=== PATIENT | male | born 1940 | race Caucasian/White ===

== ENCOUNTER → 2016-08-24 | Outpatient (REF) | payer MEDICARE, BC ==
[2016-08-24 11:58] LABS: MEAN CORPUSCULAR HEMOGLOBIN 32.6 pg (27.0-33.0); MEAN CORPUSCULAR VOLUME 95.9 fl (80.0-96.0); RED CELL DISTRIBUTION WIDTH 13.1 % (11.5-14.5); WHITE BLOOD COUNT 7.4 K/mm3 (4.0-10.0)
[2016-08-24 12:26] LABS: ALBUMIN 3.4 GM/DL (3.2-5.2); ALKALINE PHOSPHATASE 67 U/L (45-117); ALT/SGPT 28 U/L (12-78); ANION GAP 7 MEQ/L (8-16); AST/SGOT 26 U/L (15-37); BILIRUBIN,TOTAL 0.5 MG/DL (0.2-1.0); BLOOD UREA NITROGEN 20 MG/DL (7-18); CALCIUM LEVEL 8.6 MG/DL (8.8-10.2); CARBON DIOXIDE LEVEL 30 MEQ/L (21-32); CHLORIDE LEVEL 104 MEQ/L (98-107); CHOLESTEROL LEVEL 225 MG/DL (<200); FERRITIN 68 NG/ML (26-388); FREE T4 0.97 NG/DL (0.76-1.46); GLOMERULAR FILTRATION RATE > 60.0 (>42); GLUCOSE, FASTING 101 MG/DL (83-110); POTASSIUM SERUM 4.1 MEQ/L (3.5-5.1); SODIUM LEVEL 141 MEQ/L (136-145); TOTAL PROTEIN 6.8 GM/DL (6.4-8.2); TRIGLYCERIDES LEVEL 156 MG/DL (<150)
== END ==
LOC: M SFHCCLAY 07:01
PROVIDERS: ATTEND Family Medicine
DX: D64.9 Anemia, unspecified (principal); E78.00 Pure hypercholesterolemia, unspecified; E03.9 Hypothyroidism, unspecified

== ENCOUNTER → 2016-08-25 | Outpatient (REF) | payer MEDICARE, BC ==
[2016-08-25 12:14] LABS: MEAN CORPUSCULAR HEMOGLOBIN 32.2 pg (27.0-33.0); MEAN CORPUSCULAR HGB CONC 33.5 g/dl (32.0-36.5); MEAN CORPUSCULAR VOLUME 95.9 fl (80.0-96.0); WHITE BLOOD COUNT 7.1 K/mm3 (4.0-10.0)
[2016-08-25 12:18] LABS: ALBUMIN 3.5 GM/DL (3.2-5.2); ALBUMIN/GLOBULIN RATIO 1.06 (1.00-1.93); ALKALINE PHOSPHATASE 72 U/L (45-117); ALT/SGPT 26 U/L (12-78); ANION GAP 6 MEQ/L (8-16); AST/SGOT 22 U/L (15-37); BILIRUBIN,TOTAL 0.4 MG/DL (0.2-1.0); BLOOD UREA NITROGEN 23 MG/DL (7-18); CALCIUM LEVEL 9.2 MG/DL (8.8-10.2); CARBON DIOXIDE LEVEL 30 MEQ/L (21-32); CHLORIDE LEVEL 107 MEQ/L (98-107); CREATININE FOR GFR 1.24 MG/DL (0.70-1.30); GLOMERULAR FILTRATION RATE > 60.0 (>42); GLUCOSE, FASTING 93 MG/DL (83-110); POTASSIUM SERUM 4.4 MEQ/L (3.5-5.1); SODIUM LEVEL 143 MEQ/L (136-145); TOTAL PROTEIN 6.8 GM/DL (6.4-8.2)
[2016-08-25 12:19] LABS: LITHIUM LEVEL 0.86 MEQ/L (0.60-1.20)
== END ==
LOC: M LABDRAWC 11:27
PROVIDERS: ATTEND Nurse Practitioner Psychiatric/Mental Health
DX: Z51.81 Encounter for therapeutic drug level monitoring (principal); Z79.899 Other long term (current) drug therapy

== ENCOUNTER → 2017-03-16 | Outpatient (REF) | payer MEDICARE, BC ==
[2017-03-16 11:49] LABS: MEAN CORPUSCULAR HGB CONC 33.1 g/dl (32.0-36.5); MEAN CORPUSCULAR VOLUME 93.8 fl (80.0-96.0); PLATELET COUNT, AUTOMATED 275 10^3/uL (150-450); RED CELL DISTRIBUTION WIDTH 12.5 % (11.5-14.5); WHITE BLOOD COUNT 6.8 10^3/uL (4.0-10.0)
[2017-03-16 12:23] LABS: ALBUMIN 3.5 GM/DL (3.2-5.2); ALBUMIN/GLOBULIN RATIO 1.06 (1.00-1.93); BILIRUBIN,TOTAL 0.7 MG/DL (0.2-1.0); CALCIUM LEVEL 9.1 MG/DL (8.8-10.2); CREATININE FOR GFR 1.3 MG/DL (0.70-1.30); FREE T4 0.94 NG/DL (0.76-1.46); GLOMERULAR FILTRATION RATE 57.4 (>42); POTASSIUM SERUM 3.7 MEQ/L (3.5-5.1); TOTAL PROTEIN 6.8 GM/DL (6.4-8.2)
== END ==
LOC: M SFHCCLAY 07:23
PROVIDERS: ATTEND Family Medicine
DX: D64.9 Anemia, unspecified (principal); E03.9 Hypothyroidism, unspecified

== ENCOUNTER → 2017-10-25 | Outpatient (REF) | payer MEDICARE, BC ==
[2017-10-25 11:54] LABS: HEMATOCRIT 37.3 % (42.0-52.0); HEMOGLOBIN 12.4 g/dl (13.5-17.5); MEAN CORPUSCULAR HEMOGLOBIN 31.4 pg (27.0-33.0); MEAN CORPUSCULAR HGB CONC 33.2 g/dl (32.0-36.5); MEAN CORPUSCULAR VOLUME 94.4 fl (80.0-96.0); PLATELET COUNT, AUTOMATED 255 10^3/uL (150-450); RED BLOOD COUNT 3.95 10^6/uL (4.30-6.10); RED CELL DISTRIBUTION WIDTH 12.9 % (11.5-14.5)
[2017-10-25 12:45] LABS: ALBUMIN 3.2 GM/DL (3.2-5.2); ALBUMIN/GLOBULIN RATIO 1.03 (1.00-1.93); ALKALINE PHOSPHATASE 70 U/L (45-117); ALT/SGPT 24 U/L (12-78); ANION GAP 6 MEQ/L (8-16); AST/SGOT 23 U/L (7-37); BILIRUBIN,TOTAL 0.5 MG/DL (0.2-1.0); BLOOD UREA NITROGEN 21 MG/DL (7-18); CALCIUM LEVEL 8.9 MG/DL (8.8-10.2); CARBON DIOXIDE LEVEL 28 MEQ/L (21-32); CHLORIDE LEVEL 108 MEQ/L (98-107); CHOLESTEROL LEVEL 217 MG/DL (<200); CHOLESTEROL RISK RATIO 4.717 (<5); FERRITIN 112 NG/ML (26-388); FREE T4 0.82 NG/DL (0.76-1.46); GLOMERULAR FILTRATION RATE 57.4 (>42); GLUCOSE, FASTING 90 MG/DL (70-100); HDL CHOLESTEROL 46 MG/DL (>40); LDL CHOLESTEROL 122.2 MG/DL (<100); NON-HDL-C 171 MG/DL; POTASSIUM SERUM 4.3 MEQ/L (3.5-5.1); SODIUM LEVEL 142 MEQ/L (136-145); TOTAL PROTEIN 6.3 GM/DL (6.4-8.2); TRIGLYCERIDES LEVEL 244 MG/DL (<150)
== END ==
LOC: M SFHCCLAY 07:07
DX: D64.9 Anemia, unspecified (principal); E78.2 Mixed hyperlipidemia; E03.9 Hypothyroidism, unspecified
CPT/HCPCS: 84443

== ENCOUNTER → 2018-04-26 | Outpatient (REF) | payer MEDICARE, BC ==
[2018-04-26 11:32] LABS: HEMATOCRIT 39.9 % (42.0-52.0); HEMOGLOBIN 13.3 g/dl (13.5-17.5); MEAN CORPUSCULAR HEMOGLOBIN 32.3 pg (27.0-33.0); MEAN CORPUSCULAR HGB CONC 33.3 g/dl (32.0-36.5); MEAN CORPUSCULAR VOLUME 96.8 fl (80.0-96.0); PLATELET COUNT, AUTOMATED 247 10^3/uL (150-450); RED BLOOD COUNT 4.12 10^6/uL (4.30-6.10); WHITE BLOOD COUNT 7.1 10^3/uL (4.0-10.0)
[2018-04-26 11:43] LABS: ALBUMIN 3.5 GM/DL (3.2-5.2); BILIRUBIN,TOTAL 0.4 MG/DL (0.2-1.0); CALCIUM LEVEL 9.2 MG/DL (8.8-10.2); CREATININE FOR GFR 1.47 MG/DL (0.70-1.30); GLOMERULAR FILTRATION RATE 49.7 (>42); LITHIUM LEVEL 0.94 MEQ/L (0.60-1.20); POTASSIUM SERUM 4.1 MEQ/L (3.5-5.1); THYROID STIMULATING HORMONE 5.55 uIU/ML (0.358-3.740); THYROXINE (T4) 8.8 UG/DL (4.5-12.0); TOTAL PROTEIN 6.6 GM/DL (6.4-8.2); TOTAL T3 106.5 NG/DL (60.0-181.0)
[2018-04-26 11:44] LABS: TOTAL 25(OH) VITAMIN D 45.8 NG/ML (30.0-100.0)
== END ==
LOC: M LABDRAWC 11:03
PROVIDERS: ATTEND Nurse Practitioner Psychiatric/Mental Health
DX: E61.1 Iron deficiency (principal); E55.9 Vitamin D deficiency, unspecified; Z79.899 Other long term (current) drug therapy

== ENCOUNTER → 2018-09-09 | Outpatient (REF) | payer MEDICARE, BC ==
[2018-09-09 12:16] LABS: BASO % 0.6 % (0.0-1.0); EOS # 0.2 10^3/uL (0.0-0.50); EOS % 3.3 % (0.0-3.0); HEMATOCRIT 39.8 % (42.0-52.0); HEMOGLOBIN 13.2 g/dl (13.5-17.5); LYMPH # 1.3 10^3/uL (1.5-4.5); LYMPH % 19.3 % (24.0-44.0); MEAN CORPUSCULAR HEMOGLOBIN 32.7 pg (27.0-33.0); MEAN CORPUSCULAR HGB CONC 33.2 g/dl (32.0-36.5); MEAN CORPUSCULAR VOLUME 98.5 fl (80.0-96.0); MONO # 0.5 10^3/uL (0.0-0.8); MONO % 7.4 % (0.0-5.0); NEUTROPHILS # 4.8 10^3/uL (1.8-7.7); NEUTROPHILS % 69.1 % (36.0-66.0); PLATELET COUNT, AUTOMATED 268 10^3/uL (150-450); RED BLOOD COUNT 4.04 10^6/uL (4.30-6.10); WHITE BLOOD COUNT 6.9 10^3/uL (4.0-10.0)
[2018-09-09 12:30] LABS: ALBUMIN 3.6 GM/DL (3.2-5.2); BILIRUBIN,TOTAL 0.6 MG/DL (0.2-1.0); CALCIUM LEVEL 9.2 MG/DL (8.8-10.2); CREATININE FOR GFR 1.28 MG/DL (0.70-1.30); FREE T4 0.94 NG/DL (0.76-1.46); GLOMERULAR FILTRATION RATE 58.3 (>42); LITHIUM LEVEL 0.37 MEQ/L (0.60-1.20); POTASSIUM SERUM 3.9 MEQ/L (3.5-5.1); THYROID STIMULATING HORMONE 6.04 uIU/ML (0.358-3.740); TOTAL PROTEIN 6.7 GM/DL (6.4-8.2)
[2018-09-09 13:24] LABS: TOTAL 25(OH) VITAMIN D 51.9 NG/ML (30.0-100.0); TOTAL T3 114.4 NG/DL (60.0-181.0)
== END ==
LOC: M LABDRAWC 11:33
PROVIDERS: ATTEND Acupuncturist
DX: Z79.899 Other long term (current) drug therapy (principal); E55.9 Vitamin D deficiency, unspecified

== ENCOUNTER → 2018-11-22 | Outpatient (REF) | payer MEDICARE, BC ==
[2018-11-22 12:27] LABS: BASO % 0.5 % (0.0-1.0); EOS # 0.3 10^3/uL (0.0-0.50); EOS % 4.2 % (0.0-3.0); HEMATOCRIT 39.6 % (42.0-52.0); HEMOGLOBIN 13.1 g/dl (13.5-17.5); LYMPH # 1.4 10^3/uL (1.5-4.5); LYMPH % 19.1 % (24.0-44.0); MEAN CORPUSCULAR HEMOGLOBIN 31.3 pg (27.0-33.0); MEAN CORPUSCULAR HGB CONC 33.1 g/dl (32.0-36.5); MEAN CORPUSCULAR VOLUME 94.5 fl (80.0-96.0); MONO # 0.6 10^3/uL (0.0-0.8); NEUTROPHILS # 5.1 10^3/uL (1.8-7.7); NEUTROPHILS % 67.9 % (36.0-66.0); PLATELET COUNT, AUTOMATED 277 10^3/uL (150-450); RED BLOOD COUNT 4.19 10^6/uL (4.30-6.10); WHITE BLOOD COUNT 7.5 10^3/uL (4.0-10.0)
[2018-11-22 12:49] LABS: ALBUMIN 3.5 GM/DL (3.2-5.2); BILIRUBIN,TOTAL 0.5 MG/DL (0.2-1.0); CALCIUM LEVEL 9.4 MG/DL (8.8-10.2); CHOLESTEROL RISK RATIO 3.683 (<5); CREATININE FOR GFR 1.32 MG/DL (0.70-1.30); GLOMERULAR FILTRATION RATE 56.1 (>42); POTASSIUM SERUM 3.9 MEQ/L (3.5-5.1); THYROID STIMULATING HORMONE 4.77 uIU/ML (0.358-3.740); TOTAL PROTEIN 6.8 GM/DL (6.4-8.2)
== END ==
LOC: M SFHCCLAY 06:51
PROVIDERS: ATTEND Family Medicine
DX: D64.9 Anemia, unspecified (principal); E78.2 Mixed hyperlipidemia; E03.9 Hypothyroidism, unspecified

== ENCOUNTER → 2018-12-16 | Outpatient (CLI) | payer MEDICARE, BC ==
--- NOTE | 2018-12-16 09:10 | REP ---
Right thumb series: Four views. History: Pain in the right thumb. Findings: Four views of the right thumb demonstrate osteoarthritic changes most pronounced at the first carpometacarpal articulation. There is joint space narrowing, sclerosis and osteophyte formation. There is minimal spurring at the first MCP and mild spurring is seen at the IP joint of the thumb as well. No erosive change is seen. No fracture or other acute bony abnormality. Impression: Osteoarthritis. No acute bony abnormality. Electronically Signed by Steven Matos MD 12/16/2018 09:19 A
== END ==
LOC: M CLY 07:48
PROVIDERS: ATTEND Family Medicine
DX: M18.9 Osteoarthritis of first carpometacarpal joint, unspecified (principal); M79.644 Pain in right finger(s)
CPT/HCPCS: 73140; G0463

== ENCOUNTER → 2019-01-23 | Outpatient (CLI) | payer MEDICARE, BC ==
[2019-01-23 15:32] LABS: BASO % 0.5 % (0.0-1.0); EOS # 0.3 10^3/uL (0.0-0.5); EOS % 3.7 % (0.0-3.0); HEMATOCRIT 38.9 % (42.0-52.0); LYMPH # 1.6 10^3/uL (1.5-5.0); LYMPH % 18.4 % (24.0-44.0); MEAN CORPUSCULAR HEMOGLOBIN 32.6 pg (27.0-33.0); MEAN CORPUSCULAR HGB CONC 33.4 g/dl (32.0-36.5); MEAN CORPUSCULAR VOLUME 97.5 fl (80.0-96.0); MONO # 0.6 10^3/uL (0.0-0.8); MONO % 6.6 % (0.0-5.0); NEUTROPHILS % 70.4 % (36.0-66.0); PLATELET COUNT, AUTOMATED 249 10^3/uL (150-450); RED BLOOD COUNT 3.99 10^6/uL (4.30-6.10); WHITE BLOOD COUNT 8.5 10^3/uL (4.0-10.0)
[2019-01-23 15:53] LABS: HEMOGLOBIN A1c 5.1 %
[2019-01-23 16:05] LABS: ALBUMIN 3.5 GM/DL (3.2-5.2); BILIRUBIN,TOTAL 0.8 MG/DL (0.2-1.0); CALCIUM LEVEL 9.4 MG/DL (8.8-10.2); CREATININE FOR GFR 1.43 MG/DL (0.70-1.30); GLOMERULAR FILTRATION RATE 51.2 (>42); LITHIUM LEVEL 0.62 MEQ/L (0.60-1.20); PERCENT SATURATION 32.9 % (19.7-50.0); POTASSIUM SERUM 4.2 MEQ/L (3.5-5.1); THYROID STIMULATING HORMONE 2.43 uIU/ML (0.358-3.740); THYROXINE (T4) 9.3 UG/DL (4.5-12.0); TOTAL PROTEIN 6.8 GM/DL (6.4-8.2)
[2019-01-23 16:08] LABS: TOTAL 25(OH) VITAMIN D 51.6 NG/ML (30.0-100.0)
== END ==
LOC: M LAB 14:38
PROVIDERS: ATTEND Nurse Practitioner Psychiatric/Mental Health
DX: Z51.81 Encounter for therapeutic drug level monitoring (principal); Z79.899 Other long term (current) drug therapy; E55.9 Vitamin D deficiency, unspecified; D50.9 Iron deficiency anemia, unspecified; R79.89 Other specified abnormal findings of blood chemistry

== ENCOUNTER → 2019-06-15 | Outpatient (REF) | payer MEDICARE, BC ==
[2019-06-15 19:30] LABS: BASO # 0.1 10^3/uL (0.0-0.2); BASO % 0.7 % (0.0-1.0); EOS # 0.2 10^3/uL (0.0-0.5); EOS % 3.3 % (0.0-3.0); HEMATOCRIT 39.5 % (42.0-52.0); HEMOGLOBIN 12.7 g/dl (13.5-17.5); LYMPH % 14.7 % (24.0-44.0); MEAN CORPUSCULAR HEMOGLOBIN 31.8 pg (27.0-33.0); MEAN CORPUSCULAR HGB CONC 32.2 g/dl (32.0-36.5); MEAN CORPUSCULAR VOLUME 98.8 fl (80.0-96.0); MONO # 0.5 10^3/uL (0.0-0.8); MONO % 7.4 % (0.0-5.0); NEUTROPHILS # 5.1 10^3/uL (1.5-8.5); NEUTROPHILS % 73.6 % (36.0-66.0); PLATELET COUNT, AUTOMATED 255 10^3/uL (150-450)
[2019-06-15 19:48] LABS: ALBUMIN 3.3 GM/DL (3.2-5.2); BILIRUBIN,TOTAL 0.8 MG/DL (0.2-1.0); CALCIUM LEVEL 9.2 MG/DL (8.8-10.2); CREATININE FOR GFR 1.4 MG/DL (0.70-1.30); GLOMERULAR FILTRATION RATE 52.5 (>42); LITHIUM LEVEL 0.93 MEQ/L (0.60-1.20); PERCENT SATURATION 28.4 % (19.7-50.0); POTASSIUM SERUM 4.2 MEQ/L (3.5-5.1); THYROID STIMULATING HORMONE 0.028 uIU/ML (0.358-3.740); THYROXINE (T4) 12.3 UG/DL (4.5-12.0); TOTAL PROTEIN 6.4 GM/DL (6.4-8.2)
[2019-06-15 19:52] LABS: TOTAL 25(OH) VITAMIN D 49.6 NG/ML (30.0-100.0)
[2019-06-15 19:54] LABS: TOTAL T3 116.4 NG/DL (60.0-181.0)
== END ==
LOC: M LABDRAWC 18:43 → M LAB REF 18:43
PROVIDERS: ATTEND Acupuncturist
DX: R79.89 Other specified abnormal findings of blood chemistry (principal); Z79.899 Other long term (current) drug therapy; E55.9 Vitamin D deficiency, unspecified; D50.9 Iron deficiency anemia, unspecified; E53.9 Vitamin B deficiency, unspecified

== ENCOUNTER → 2019-07-14 | Outpatient (REF) | payer MEDICARE, BC ==
[2019-07-14 16:08] LABS: BASO # 0.1 10^3/uL (0.0-0.2); BASO % 0.6 % (0.0-1.0); EOS # 0.3 10^3/uL (0.0-0.5); EOS % 3.1 % (0.0-3.0); HEMATOCRIT 39.8 % (42.0-52.0); HEMOGLOBIN 13.1 g/dl (13.5-17.5); LYMPH # 1.2 10^3/uL (1.5-5.0); LYMPH % 14.5 % (24.0-44.0); MEAN CORPUSCULAR HEMOGLOBIN 32.1 pg (27.0-33.0); MEAN CORPUSCULAR HGB CONC 32.9 g/dl (32.0-36.5); MEAN CORPUSCULAR VOLUME 97.5 fl (80.0-96.0); MONO # 0.6 10^3/uL (0.0-0.8); MONO % 7.3 % (0.0-5.0); NEUTROPHILS # 5.9 10^3/uL (1.5-8.5); NEUTROPHILS % 74.1 % (36.0-66.0); PLATELET COUNT, AUTOMATED 259 10^3/uL (150-450); RED BLOOD COUNT 4.08 10^6/uL (4.30-6.10)
[2019-07-14 16:22] LABS: ALBUMIN 3.4 GM/DL (3.2-5.2); ALT/SGPT 19 U/L (12-78); BILIRUBIN,TOTAL 0.7 MG/DL (0.2-1.0); BLOOD UREA NITROGEN 26 MG/DL (7-18); CALCIUM LEVEL 9.7 MG/DL (8.8-10.2); CARBON DIOXIDE LEVEL 32 MEQ/L (21-32); CHLORIDE LEVEL 109 MEQ/L (98-107); FERRITIN 251 NG/ML (26-388); GLOMERULAR FILTRATION RATE 52.5 (>42); GLUCOSE, FASTING 100 MG/DL (70-100); IRON (FE) 121 UG/DL (65-175); LITHIUM LEVEL 0.84 MEQ/L (0.60-1.20); SODIUM LEVEL 142 MEQ/L (136-145); THYROID STIMULATING HORMONE < 0.005 uIU/ML (0.358-3.740); THYROXINE (T4) 13.9 UG/DL (4.5-12.0); TOTAL IRON BINDING CAPACITY 288 UG/DL (250-450); TOTAL PROTEIN 6.6 GM/DL (6.4-8.2); TOTAL T3 174.9 NG/DL (60.0-181.0); VITAMIN B12 LEVEL 613 PG/ML (247-911)
== END ==
LOC: M LABDRAWC 15:48
PROVIDERS: ATTEND Acupuncturist
DX: Z79.899 Other long term (current) drug therapy (principal); E55.9 Vitamin D deficiency, unspecified; D50.9 Iron deficiency anemia, unspecified; R79.89 Other specified abnormal findings of blood chemistry; E53.9 Vitamin B deficiency, unspecified

== ENCOUNTER → 2019-10-09 | Outpatient (REF) | payer MEDICARE, BC | LOC: M LABDRAWC 11:23 | PROVIDERS: ATTEND Nurse Practitioner Psychiatric/Mental Health | DX: Z79.899 Other long term (current) drug therapy (principal); R79.89 Other specified abnormal findings of blood chemistry ==

== ENCOUNTER → 2019-11-20 | Outpatient (REF) | payer MEDICARE, BC | LOC: M LABDRAWC 09:30 | PROVIDERS: ATTEND Nurse Practitioner Psychiatric/Mental Health | DX: Z79.899 Other long term (current) drug therapy (principal); R79.89 Other specified abnormal findings of blood chemistry ==

== ENCOUNTER → 2020-01-26 | Outpatient (REF) | payer MEDICARE, BC | LOC: M LABDRAWC 17:44 | PROVIDERS: ATTEND Nurse Practitioner Psychiatric/Mental Health | DX: Z79.899 Other long term (current) drug therapy (principal); R79.89 Other specified abnormal findings of blood chemistry ==

== ENCOUNTER → 2020-03-05 | Outpatient (REF) | payer MEDICARE, BC | LOC: M LABDRAWC 15:48 | PROVIDERS: ATTEND Nurse Practitioner Psychiatric/Mental Health | DX: Z79.899 Other long term (current) drug therapy (principal); R79.89 Other specified abnormal findings of blood chemistry ==

== ENCOUNTER → 2020-05-21 | Outpatient (REF) | payer MEDICARE, BC ==
[2020-05-21 11:55] LABS: BASO # 0.1 10^3/uL (0.0-0.2); BASO % 0.8 % (0.0-1.0); EOS # 0.3 10^3/uL (0.0-0.5); EOS % 4.3 % (0.0-3.0); HEMATOCRIT 40.4 % (42.0-52.0); LYMPH # 1.2 10^3/uL (1.5-5.0); LYMPH % 17.8 % (24.0-44.0); MEAN CORPUSCULAR HEMOGLOBIN 31.3 pg (27.0-33.0); MEAN CORPUSCULAR HGB CONC 32.2 g/dl (32.0-36.5); MEAN CORPUSCULAR VOLUME 97.3 fl (80.0-96.0); MONO # 0.6 10^3/uL (0.0-0.8); MONO % 8.7 % (2.0-8.0); NEUTROPHILS # 4.5 10^3/uL (1.5-8.5); NEUTROPHILS % 68.1 % (36.0-66.0); PLATELET COUNT, AUTOMATED 282 10^3/uL (150-450); RED BLOOD COUNT 4.15 10^6/uL (4.30-6.10); WHITE BLOOD COUNT 6.6 10^3/uL (4.0-10.0)
[2020-05-21 12:30] LABS: ALBUMIN 3.9 GM/DL (3.2-5.2); BILIRUBIN,TOTAL 0.6 MG/DL (0.2-1.0); CALCIUM LEVEL 9.7 MG/DL (8.8-10.2); CHOLESTEROL RISK RATIO 3.734 (<5); CREATININE FOR GFR 1.59 MG/DL (0.70-1.30); GLOMERULAR FILTRATION RATE 45.2 (>42); LITHIUM LEVEL 0.65 MEQ/L (0.60-1.20); THYROID STIMULATING HORMONE 7.81 uIU/ML (0.358-3.740); TOTAL PROTEIN 6.8 GM/DL (6.4-8.2)
== END ==
LOC: M SFHCCLAY 09:22
PROVIDERS: ATTEND Family Medicine
DX: F31.9 Bipolar disorder, unspecified (principal); E78.2 Mixed hyperlipidemia; E03.9 Hypothyroidism, unspecified

== ENCOUNTER → 2020-07-10 | Outpatient (REF) | payer MEDICARE, BC ==
[2020-07-10 17:11] LABS: BASO # 0.1 10^3/uL (0.0-0.2); EOS # 0.2 10^3/uL (0.0-0.5); EOS % 3.5 % (0.0-3.0); HEMATOCRIT 41.2 % (42.0-52.0); LYMPH # 1.4 10^3/uL (1.5-5.0); LYMPH % 21.7 % (24.0-44.0); MEAN CORPUSCULAR HGB CONC 31.6 g/dl (32.0-36.5); MEAN CORPUSCULAR VOLUME 98.1 fl (80.0-96.0); MONO # 0.5 10^3/uL (0.0-0.8); MONO % 7.6 % (2.0-8.0); NEUTROPHILS # 4.2 10^3/uL (1.5-8.5); NEUTROPHILS % 65.9 % (36.0-66.0); PLATELET COUNT, AUTOMATED 273 10^3/uL (150-450); WHITE BLOOD COUNT 6.3 10^3/uL (4.0-10.0)
[2020-07-10 17:20] LABS: ALBUMIN 3.9 GM/DL (3.2-5.2); BILIRUBIN,TOTAL 0.6 MG/DL (0.2-1.0); CALCIUM LEVEL 10.1 MG/DL (8.8-10.2); CREATININE FOR GFR 1.36 MG/DL (0.70-1.30); GLOMERULAR FILTRATION RATE 54.1 (>42); LITHIUM LEVEL 0.6 MEQ/L (0.60-1.20); POTASSIUM SERUM 4.6 MEQ/L (3.5-5.1)
== END ==
LOC: M LABDRAWC 16:15 → M LABDRWAD 16:15
DX: Z79.899 Other long term (current) drug therapy (principal); R79.89 Other specified abnormal findings of blood chemistry

== ENCOUNTER → 2020-07-15 | Outpatient (REF) | payer MEDICARE, BC | LOC: M LAB REF 14:34 | PROVIDERS: ATTEND Dermatology | DX: D04.4 Carcinoma in situ of skin of scalp and neck (principal) ==

== ENCOUNTER → 2020-07-23 | Outpatient (REF) | payer MEDICARE, BC | LOC: M LAB REF 17:57 | PROVIDERS: ATTEND Ophthalmology | DX: L57.0 Actinic keratosis (principal) ==

== ENCOUNTER → 2020-11-18 | Outpatient (REF) | payer MEDICARE, BC ==
[2020-11-18 12:21] LABS: ALBUMIN 3.7 GM/DL (3.2-5.2); BILIRUBIN,TOTAL 0.4 MG/DL (0.2-1.0); CALCIUM LEVEL 9.4 MG/DL (8.8-10.2); CHOLESTEROL RISK RATIO 2.421 (<5); CREATININE FOR GFR 1.46 MG/DL (0.70-1.30); GLOMERULAR FILTRATION RATE 49.7 (>42); POTASSIUM SERUM 4.6 MEQ/L (3.5-5.1); THYROID STIMULATING HORMONE 8.17 uIU/ML (0.358-3.740); TOTAL PROTEIN 6.5 GM/DL (6.4-8.2)
== END ==
LOC: M SFHCCLAY 07:54
PROVIDERS: ATTEND Family Medicine
DX: E78.2 Mixed hyperlipidemia (principal); R79.89 Other specified abnormal findings of blood chemistry
CPT/HCPCS: 80053; 80061; 84436; 84443; G0463

== ENCOUNTER → 2021-05-23 | Outpatient (REF) | payer MEDICARE, BC ==
[2021-05-23 11:27] LABS: BASO # 0.1 10^3/uL (0.0-0.2); BASO % 0.8 % (0.0-1.0); EOS # 0.2 10^3/uL (0.0-0.5); HEMATOCRIT 37.6 % (42.0-52.0); HEMOGLOBIN 12.2 g/dl (13.5-17.5); LYMPH # 1.5 10^3/uL (1.5-5.0); LYMPH % 19.2 % (24.0-44.0); MEAN CORPUSCULAR HEMOGLOBIN 32.5 pg (27.0-33.0); MEAN CORPUSCULAR HGB CONC 32.4 g/dl (32.0-36.5); MEAN CORPUSCULAR VOLUME 100.3 fl (80.0-96.0); MONO # 0.5 10^3/uL (0.0-0.8); MONO % 6.8 % (2.0-8.0); NEUTROPHILS # 5.6 10^3/uL (1.5-8.5); NEUTROPHILS % 70.1 % (36.0-66.0); PLATELET COUNT, AUTOMATED 270 10^3/uL (150-450); RED BLOOD COUNT 3.75 10^6/uL (4.30-6.10); WHITE BLOOD COUNT 7.9 10^3/uL (4.0-10.0)
[2021-05-23 12:12] LABS: BILIRUBIN,TOTAL 0.7 MG/DL (0.2-1.0); CALCIUM LEVEL 9.9 MG/DL (8.8-10.2); CHOLESTEROL RISK RATIO 2.219 (<5); CREATININE FOR GFR 1.67 MG/DL (0.70-1.30); GLOMERULAR FILTRATION RATE 42.6 (>42); LITHIUM LEVEL 0.75 MEQ/L (0.60-1.20); POTASSIUM SERUM 4.7 MEQ/L (3.5-5.1); THYROID STIMULATING HORMONE 5.78 uIU/ML (0.358-3.740); TOTAL PROTEIN 7.2 GM/DL (6.4-8.2)
== END ==
LOC: M SFHCCLAY 08:40
PROVIDERS: ATTEND Family Medicine
DX: R79.89 Other specified abnormal findings of blood chemistry (principal); H40.9 Unspecified glaucoma; E78.2 Mixed hyperlipidemia; F31.9 Bipolar disorder, unspecified; R60.0 Localized edema

== ENCOUNTER → 2021-06-30 | Outpatient (REF) | payer MEDICARE, BC ==
[2021-06-30 12:02] LABS: CALCIUM LEVEL 9.8 MG/DL (8.8-10.2); CREATININE FOR GFR 1.53 MG/DL (0.70-1.30); GLOMERULAR FILTRATION RATE 47.1 (>42); POTASSIUM SERUM 4.6 MEQ/L (3.5-5.1)
== END ==
LOC: M SFHCCLAY 08:42
PROVIDERS: ATTEND Family Medicine
DX: N18.32 Chronic kidney disease, stage 3b (principal)

== ENCOUNTER → 2021-09-09 | Outpatient (REF) | payer MEDICARE, BC ==
[~2021-09-09] MED LIST: ACET500T15 PO; ATOR1TAB19 PO; CITA10TA7 PO; CYCL5TAB PO; D-101000 PO; EQ A1CRE3 TOP; FURO20TA2 PO; GABA-282 PO; HYDR-3713 PO; HYDR25OI TOP; IRON65TA2 PO; LAMO150T3 PO; LATA0.0015 OU; MELO15TA28 PO; METR0.7533 TOP; THERTAB52 PO; TIMO0.5S29 OU; VITA500C19 PO; VITATAB73 PO; [UNRECOGNIZED DRUG - OTHER] TOP
[2021-09-09 12:01] LABS: BASO # 0.1 10^3/uL (0.0-0.2); BASO % 0.8 % (0.0-1.0); EOS # 0.2 10^3/uL (0.0-0.5); HEMATOCRIT 36.5 % (42.0-52.0); LYMPH # 1.3 10^3/uL (1.5-5.0); LYMPH % 20.1 % (24.0-44.0); MEAN CORPUSCULAR HEMOGLOBIN 32.6 pg (27.0-33.0); MEAN CORPUSCULAR HGB CONC 32.9 g/dl (32.0-36.5); MEAN CORPUSCULAR VOLUME 99.2 fl (80.0-96.0); MONO # 0.5 10^3/uL (0.0-0.8); MONO % 7.7 % (2.0-8.0); NEUTROPHILS # 4.3 10^3/uL (1.5-8.5); NEUTROPHILS % 68.2 % (36.0-66.0); PLATELET COUNT, AUTOMATED 214 10^3/uL (150-450); RED BLOOD COUNT 3.68 10^6/uL (4.30-6.10); WHITE BLOOD COUNT 6.3 10^3/uL (4.0-10.0)
[2021-09-09 12:41] LABS: ALBUMIN 3.6 GM/DL (3.2-5.2); ALT/SGPT 35 U/L (12-78); BILIRUBIN,TOTAL 0.4 MG/DL (0.2-1.0); BLOOD UREA NITROGEN 41 MG/DL (7-18); CALCIUM LEVEL 9.1 MG/DL (8.8-10.2); CARBON DIOXIDE LEVEL 29 MEQ/L (21-32); CHLORIDE LEVEL 109 MEQ/L (98-107); CREATININE FOR GFR 1.58 MG/DL (0.70-1.30); FOLATE > 24.0 NG/ML (>5.4); GLOMERULAR FILTRATION RATE 45.4 (>42); GLUCOSE, FASTING 90 MG/DL (70-100); IRON (FE) 65 UG/DL (65-175); POTASSIUM SERUM 4.2 MEQ/L (3.5-5.1); SODIUM LEVEL 142 MEQ/L (136-145); TOTAL PROTEIN 6.6 GM/DL (6.4-8.2); TOTAL T3 109.7 NG/DL (60.0-181.0); VITAMIN B12 LEVEL 516 PG/ML (247-911)
== END ==
LOC: M SFHCCLAY 08:18
PROVIDERS: ATTEND Family Medicine
DX: D64.9 Anemia, unspecified (principal); R79.89 Other specified abnormal findings of blood chemistry; R63.4 Abnormal weight loss

== ENCOUNTER → 2021-09-22 | Outpatient (CLI) | payer MEDICARE, BC | LOC: M LABSMTC 10:56 | PROVIDERS: ATTEND Anesthesiology | DX: Z01.812 Encounter for preprocedural laboratory examination (principal); Z20.822 Contact with and (suspected) exposure to COVID-19 ==

== ENCOUNTER 2021-09-24 07:21 | Day surgery (SDC) | payer MEDICARE, BC ==
[~2021-09-24] VITALS: Ht 170.2 cm; Wt 53.1 kg
[~2021-09-24 07:21] MED LIST changes: -HYDR-3713 PO
[2021-09-24] MEDS ORDERED: LR 1,000 ML IV SCH (07:45)
[2021-09-24] MEDS ORDERED: MIDAZOLAM INJ 2MG/2ML VIAL (J2250 PER 1MG) As Ordered ONE (08:14)
[2021-09-24] MEDS ORDERED: LIDOCAINE 2% 100MG/5ML SDV (FOR ANES.) As Ordered ONE (08:14)
[2021-09-24] MEDS ORDERED: fentaNYL 100 MCG/2 ML INJECTION As Ordered ONE (08:14)
[2021-09-24] MEDS ORDERED: ONDANSETRON 4MG/2ML VIAL As Ordered ONE (08:14)
[2021-09-24] MEDS ORDERED: propofoL 200 MG/20 ML VIAL As Ordered ONE (08:14)
[2021-09-24] MEDS ORDERED: CLINDAMYCIN 600 MG in IV 1 EA IV ONE (08:55)
[2021-09-24] MEDS ORDERED: LIDOCAINE 1% MDV 20ML VIAL As Ordered ONE (10:18)
[2021-09-24] MEDS ORDERED: BUPIVACAINE HCL 0.5% 30ML VIAL As Ordered ONE (10:18)
[2021-09-24] MEDS ORDERED: HYDR-3713 PO (11:00)
[2021-09-24 11:35] VITALS: BP 131/70
== END 2021-09-24 12:11 | disposition home or self-care (01) ==
LOC: M SDC 07:21
PROVIDERS: ATTEND Podiatrist Foot & Ankle Surgery
DX: M20.41 Other hammer toe(s) (acquired), right foot (principal); E78.5 Hyperlipidemia, unspecified; D64.9 Anemia, unspecified; Z88.0 Allergy status to penicillin; F31.9 Bipolar disorder, unspecified; Z79.899 Other long term (current) drug therapy
CPT/HCPCS: 28820; 88300; J2250; J2405; J3010

== ENCOUNTER → 2021-12-11 | Outpatient (REF) | payer MEDICARE, BC ==
[~2021-12-11] MED LIST changes: +HYDR-3713 PO
[2021-12-11 18:14] LABS: ALBUMIN 3.4 GM/DL (3.2-5.2); BILIRUBIN,TOTAL 0.7 MG/DL (0.2-1.0); CALCIUM LEVEL 9.8 MG/DL (8.8-10.2); CHOLESTEROL RISK RATIO 2.462 (<5); CREATININE FOR GFR 1.91 MG/DL (0.70-1.30); GLOMERULAR FILTRATION RATE 36.4 (>42); POTASSIUM SERUM 4.6 MEQ/L (3.5-5.1); THYROID STIMULATING HORMONE 2.94 uIU/ML (0.358-3.740); TOTAL PROTEIN 6.1 GM/DL (6.4-8.2)
== END ==
LOC: M SFHCCLAY 11:32
PROVIDERS: ATTEND Family Medicine
DX: N18.32 Chronic kidney disease, stage 3b (principal); R79.89 Other specified abnormal findings of blood chemistry; E78.2 Mixed hyperlipidemia

== ENCOUNTER → 2022-01-02 | Outpatient (CLI) | payer MEDICARE, BC | LOC: M PLAIMG 13:42 | PROVIDERS: ATTEND Family Medicine | DX: M54.16 Radiculopathy, lumbar region (principal); M43.06 Spondylolysis, lumbar region; M51.27 Other intervertebral disc displacement, lumbosacral region; M48.061 Spinal stenosis, lumbar region without neurogenic claudication ==

== ENCOUNTER → 2022-01-09 | Outpatient (REF) | payer MEDICARE, BC | LOC: M LAB REF 17:02 | PROVIDERS: ATTEND Internal Medicine Nephrology | DX: R80.9 Proteinuria, unspecified (principal) ==

== ENCOUNTER → 2022-01-15 | Outpatient (REF) | payer MEDICARE, BC ==
[2022-01-15 19:05] LABS: FREE THYROXINE INDEX 2.9 % (1.4-3.8); THYROID STIMULATING HORMONE 3.87 uIU/ML (0.358-3.740); THYROXINE (T4) 9.1 UG/DL (4.5-12.0)
[2022-01-15 19:57] LABS: TOTAL 25(OH) VITAMIN D 110.4 NG/ML (30.0-100.0)
== END ==
LOC: M LABDRAWC 17:28
PROVIDERS: ATTEND Psychiatry & Neurology Neurology
DX: E03.9 Hypothyroidism, unspecified (principal); R26.89 Other abnormalities of gait and mobility; E53.8 Deficiency of other specified B group vitamins

== ENCOUNTER → 2022-03-16 | Outpatient (REF) | payer MEDICARE, BC ==
[~2022-03-16] MED LIST changes: +METR0.7526 TOP; -METR0.7533 TOP
== END ==
LOC: M SFHCCLAY 10:49
PROVIDERS: ATTEND Family Medicine
DX: F31.9 Bipolar disorder, unspecified (principal)

== ENCOUNTER → 2022-06-15 | Outpatient (REF) | payer MEDICARE, BC ==
[2022-06-15 18:19] LABS: BASO % 0.3 % (0.0-1.0); EOS # 0.1 10^3/uL (0.0-0.5); EOS % 1.5 % (0.0-3.0); HEMATOCRIT 36.5 % (42.0-52.0); HEMOGLOBIN 11.8 g/dl (13.5-17.5); MEAN CORPUSCULAR HEMOGLOBIN 32.6 pg (27.0-33.0); MEAN CORPUSCULAR HGB CONC 32.3 g/dl (32.0-36.5); MEAN CORPUSCULAR VOLUME 100.8 fl (80.0-96.0); MONO # 0.7 10^3/uL (0.0-0.8); MONO % 8.7 % (2.0-8.0); NEUTROPHILS # 6.1 10^3/uL (1.5-8.5); NEUTROPHILS % 76.1 % (36.0-66.0); PLATELET COUNT, AUTOMATED 258 10^3/uL (150-450); RED BLOOD COUNT 3.62 10^6/uL (4.30-6.10); WHITE BLOOD COUNT 7.9 10^3/uL (4.0-10.0)
[2022-06-15 18:51] LABS: THYROID STIMULATING HORMONE 2.586 uIU/ML (0.55-4.78)
[2022-06-15 18:52] LABS: ALBUMIN 3.3 G/DL (3.2-5.2); BILIRUBIN,TOTAL 0.6 MG/DL (0.3-1.2); CALCIUM LEVEL 9.6 MG/DL (8.3-10.6); CHOLESTEROL RISK RATIO 2.23 (<5); CREATININE FOR GFR 1.37 MG/DL (0.70-1.30); FREE T4 1.02 NG/DL (0.89-1.76); GLOMERULAR FILTRATION RATE 53.4 (>42); HDL CHOLESTEROL 72.4 MG/DL (>40); LDL CHOLESTEROL 62.4 MG/DL (<100); NON-HDL-C 89.6 MG/DL; POTASSIUM SERUM 4.9 MMOL/L (3.5-5.1)
[2022-06-15 18:55] LABS: LITHIUM LEVEL 0.51 MMOL/L (0.60-1.20)
== END ==
LOC: M SFHCCLAY 10:59
PROVIDERS: ATTEND Family Medicine
DX: E78.2 Mixed hyperlipidemia (principal); R79.89 Other specified abnormal findings of blood chemistry; F31.9 Bipolar disorder, unspecified; D64.9 Anemia, unspecified

== ENCOUNTER → 2022-08-27 | Outpatient (CLI) | payer MEDICARE, BC ==
[~2022-08-27] MED LIST changes: +TIMO0.5S20 OU; -TIMO0.5S29 OU
== END ==
LOC: M CLY 11:03
PROVIDERS: ATTEND Physician Assistant Medical
DX: M25.551 Pain in right hip (principal)

== ENCOUNTER → 2022-09-18 | Outpatient (REF) | payer MEDICARE, BC ==
[2022-09-18 18:01] LABS: ALBUMIN 3.6 G/DL (3.2-5.2); BILIRUBIN,TOTAL 0.7 MG/DL (0.3-1.2); CALCIUM LEVEL 9.1 MG/DL (8.3-10.6); CREATININE FOR GFR 1.34 MG/DL (0.70-1.30); GLOMERULAR FILTRATION RATE 54.7 (>42); TOTAL PROTEIN 6.3 G/DL (5.7-8.2)
[2022-09-18 18:02] LABS: LITHIUM LEVEL 0.49 MMOL/L (0.60-1.20)
[2022-09-18 18:03] LABS: THYROID STIMULATING HORMONE 2.565 uIU/ML (0.55-4.78)
== END ==
LOC: M LABDRAWC 16:43
PROVIDERS: ATTEND Psychiatry & Neurology Psychiatry
DX: Z51.81 Encounter for therapeutic drug level monitoring (principal); E03.9 Hypothyroidism, unspecified

== ENCOUNTER → 2023-05-21 | Outpatient (REF) | payer MEDICARE, BC ==
[2023-05-21 12:43] LABS: LITHIUM LEVEL 0.64 MMOL/L (1.0-1.20)
[2023-05-21 12:51] LABS: THYROID STIMULATING HORMONE 6.255 uIU/ML (0.55-4.78)
== END ==
LOC: M LABDRAWC 11:44
PROVIDERS: ATTEND Psychiatry & Neurology Psychiatry
DX: Z79.899 Other long term (current) drug therapy (principal)

== ENCOUNTER → 2023-06-21 | Outpatient (REF) | payer MEDICARE, BC ==
[2023-06-21 11:56] LABS: MEAN CORPUSCULAR HEMOGLOBIN 32.3 pg (27.0-33.0); MEAN CORPUSCULAR HGB CONC 32.5 g/dl (32.0-36.5); MEAN CORPUSCULAR VOLUME 99.5 fl (80.0-96.0); PLATELET COUNT, AUTOMATED 253 10^3/uL (150-450); RED BLOOD COUNT 4.02 10^6/uL (4.30-6.10); WHITE BLOOD COUNT 7.9 10^3/uL (4.0-10.0)
[2023-06-21 12:17] LABS: PSA SCREENING 1.65 NG/ML (< 4.00)
[2023-06-21 12:21] LABS: FREE T4 1.07 NG/DL (0.89-1.76); THYROID STIMULATING HORMONE 4.428 uIU/ML (0.55-4.78)
[2023-06-21 12:25] LABS: ALBUMIN 3.4 G/DL (3.2-5.2); BILIRUBIN,TOTAL 0.5 MG/DL (0.3-1.2); CALCIUM LEVEL 10.4 MG/DL (8.3-10.6); CHOLESTEROL RISK RATIO 2.06 (<5); CREATININE FOR GFR 1.3 MG/DL (0.70-1.30); GLOMERULAR FILTRATION RATE 56.5 (>35); HDL CHOLESTEROL 79.1 MG/DL (>40); LDL CHOLESTEROL 64.5 MG/DL (<100); NON-HDL-C 83.9 MG/DL; POTASSIUM SERUM 4.8 MMOL/L (3.5-5.1); TOTAL PROTEIN 6.4 G/DL (5.7-8.2)
[2023-06-21 12:49] LABS: LITHIUM LEVEL 0.55 MMOL/L (1.0-1.20)
== END ==
LOC: M SFHCCLAY 09:04
PROVIDERS: ATTEND Family Medicine
DX: F31.9 Bipolar disorder, unspecified (principal); D64.9 Anemia, unspecified; R79.89 Other specified abnormal findings of blood chemistry; E03.9 Hypothyroidism, unspecified; E78.2 Mixed hyperlipidemia; Z12.5 Encounter for screening for malignant neoplasm of prostate
CPT/HCPCS: 80053; 80061; 80178; 83540; 84439; 84443; 85027; G0103

== ENCOUNTER → 2023-11-17 | Outpatient (REF) | payer MEDICARE, BC ==
[2023-11-17 12:11] LABS: BLOOD UREA NITROGEN 22 MG/DL (9-23); CALCIUM LEVEL 9.9 MG/DL (8.3-10.6); CARBON DIOXIDE LEVEL 34 MMOL/L (20-31); CHLORIDE LEVEL 107 MMOL/L (98-107); CREATININE FOR GFR 1.28 MG/DL (0.70-1.30); GLOMERULAR FILTRATION RATE 57.6 (>35); GLUCOSE, FASTING 110 MG/DL (74-106); LITHIUM LEVEL 0.66 MMOL/L (1.0-1.20); POTASSIUM SERUM 4.4 MMOL/L (3.5-5.1); SODIUM LEVEL 137 MMOL/L (136-145)
[2023-11-17 12:13] LABS: THYROID STIMULATING HORMONE 4.061 uIU/ML (0.55-4.78); THYROXINE (T4) 7.6 UG/DL (4.5-10.9)
[2023-11-17 12:14] LABS: FREE THYROXINE INDEX 2.1 % (1.4-3.8)
== END ==
LOC: M LABDRAWC 10:47
PROVIDERS: ATTEND Psychiatry & Neurology Psychiatry
DX: Z51.81 Encounter for therapeutic drug level monitoring (principal); Z79.899 Other long term (current) drug therapy

== ENCOUNTER → 2024-03-15 | Outpatient (REF) | payer MEDICARE, BC ==
[~2024-03-15] MED LIST changes: -CYCL5TAB PO; +CYCL5TAB4 PO; +GABA-1172 PO; -GABA-282 PO; -VITA500C19 PO; +VITA500C22 PO
[2024-03-15 17:59] LABS: APPEARANCE, URINE CLEAR (CLEAR); BACTERIA, URINE AUTO NEGATIVE (NEGATIVE); BILIRUBIN, URINE AUTO NEGATIVE (NEGATIVE); BLOOD, URINE BLOOD NEGATIVE (NEGATIVE); COLOR, URINE YELLOW (YELLOW); GLUCOSE, URINE (UA) AUTO NEGATIVE (NEGATIVE); KETONE, URINE AUTO NEGATIVE (NEGATIVE); LEUKOCYTE ESTERASE, URINE AUTO NEGATIVE (NEGATIVE); NITRITE, URINE AUTO NEGATIVE (NEGATIVE); PROTEIN, URINE AUTO NEGATIVE (NEGATIVE); RBC, URINE AUTO 0 /HPF (0-3); SPECIFIC GRAVITY URINE AUTO 1.009 (1.002-1.035); SQUAMOUS EPITHELIAL CELL UR AU 0 /HPF (0-6); UROBILINOGEN, URINE AUTO 0.2 mg/dL (0.0-2.0); WBC, URINE AUTO 0 /HPF (0-3)
== END ==
LOC: M SMT 17:06
PROVIDERS: ATTEND Nurse Practitioner Family
DX: R31.0 Gross hematuria (principal)

== ENCOUNTER → 2024-03-21 | Outpatient (REF) | payer MEDICARE, BC | LOC: M SFHCCLAY 17:32 | PROVIDERS: ATTEND Nurse Practitioner Family | DX: R31.0 Gross hematuria (principal) ==

== ENCOUNTER → 2024-03-27 | Outpatient (REF) | payer MEDICARE, BC ==
[2024-03-27 11:23] LABS: BLOOD UREA NITROGEN 18 MG/DL (9-23); CALCIUM LEVEL 10.2 MG/DL (8.3-10.6); CARBON DIOXIDE LEVEL 32 MMOL/L (20-31); CHLORIDE LEVEL 105 MMOL/L (98-107); CREATININE FOR GFR 1.19 MG/DL (0.70-1.30); GLOMERULAR FILTRATION RATE > 60.0 (>35); GLUCOSE, FASTING 105 MG/DL (74-106); POTASSIUM SERUM 4.9 MMOL/L (3.5-5.1); SODIUM LEVEL 142 MMOL/L (136-145)
== END ==
LOC: M SFHCCLAY 08:09
PROVIDERS: ATTEND Nurse Practitioner Family
DX: R31.0 Gross hematuria (principal)

== ENCOUNTER → 2024-04-03 | Outpatient (CLI) | payer MEDICARE, BC ==
[~2024-04-03] MED LIST changes: +ISOVUE-370 76% 100ML VIAL As Ordered ONE
== END ==
LOC: M RAD 08:34
PROVIDERS: ATTEND Nurse Practitioner Family
DX: R31.0 Gross hematuria (principal)
CPT/HCPCS: 74178; Q9967

== ENCOUNTER → 2024-06-27 | Outpatient (REF) | payer MEDICARE, BC ==
[~2024-06-27] MED LIST changes: -ISOVUE-370 76% 100ML VIAL As Ordered ONE
[2024-06-27 19:04] LABS: ALBUMIN 3.1 G/DL (3.2-5.2); BILIRUBIN,TOTAL 0.4 MG/DL (0.3-1.2); CALCIUM LEVEL 10.4 MG/DL (8.3-10.6); CREATININE FOR GFR 1.24 MG/DL (0.70-1.30); GLOMERULAR FILTRATION RATE 59.6 (>35); LITHIUM LEVEL 0.65 MMOL/L (1.0-1.20); POTASSIUM SERUM 4.8 MMOL/L (3.5-5.1); THYROID STIMULATING HORMONE 5.107 uIU/ML (0.55-4.78); TOTAL PROTEIN 6.6 G/DL (5.7-8.2)
== END ==
LOC: M LABDRAWC 12:16
PROVIDERS: ATTEND Psychiatry & Neurology Psychiatry
DX: Z51.81 Encounter for therapeutic drug level monitoring (principal); Z79.899 Other long term (current) drug therapy

== ENCOUNTER → 2024-06-27 | Outpatient (REF) | payer MEDICARE, BC ==
[2024-06-27 15:06] LABS: ALBUMIN 3.1 G/DL (3.2-5.2); ALKALINE PHOSPHATASE 95 U/L (40-129); ALT/SGPT 28 U/L (7.0-40); AST/SGOT 22 U/L (<34); BILIRUBIN,TOTAL 0.4 MG/DL (0.3-1.2); BLOOD UREA NITROGEN 20 MG/DL (9-23); CALCIUM LEVEL 10.4 MG/DL (8.3-10.6); CARBON DIOXIDE LEVEL 33 MMOL/L (20-31); CHLORIDE LEVEL 102 MMOL/L (98-107); CREATININE FOR GFR 1.23 MG/DL (0.70-1.30); GLOMERULAR FILTRATION RATE > 60.0 (>35); GLUCOSE, FASTING 93 MG/DL (74-106); POTASSIUM SERUM 4.8 MMOL/L (3.5-5.1); SODIUM LEVEL 139 MMOL/L (136-145); TOTAL PROTEIN 6.6 G/DL (5.7-8.2)
[2024-06-27 15:17] LABS: BASO # 0.1 10^3/uL (0.0-0.2); BASO % 0.5 % (0.0-1.0); EOS # 0.6 10^3/uL (0.0-0.5); EOS % 6.2 % (0.0-3.0); HEMATOCRIT 39.8 % (42.0-52.0); HEMOGLOBIN 12.8 g/dl (13.5-17.5); LYMPH # 1.2 10^3/uL (1.5-5.0); LYMPH % 12.6 % (24.0-44.0); MEAN CORPUSCULAR HEMOGLOBIN 31.8 pg (27.0-33.0); MEAN CORPUSCULAR HGB CONC 32.2 g/dl (32.0-36.5); MEAN CORPUSCULAR VOLUME 98.8 fl (80.0-96.0); MONO # 0.8 10^3/uL (0.0-0.8); MONO % 7.9 % (2.0-8.0); NEUTROPHILS # 6.8 10^3/uL (1.5-8.5); PLATELET COUNT, AUTOMATED 292 10^3/uL (150-450); RED BLOOD COUNT 4.03 10^6/uL (4.30-6.10); WHITE BLOOD COUNT 9.5 10^3/uL (4.0-10.0)
== END ==
LOC: M LABDRAWC 12:19
PROVIDERS: ATTEND Psychiatry & Neurology Neurology
DX: G25.0 Essential tremor (principal)

== ENCOUNTER → 2024-06-27 | Outpatient (REF) | payer MEDICARE, BC ==
[2024-06-27 15:16] LABS: HEMATOCRIT 39.2 % (42.0-52.0); HEMOGLOBIN 12.6 g/dl (13.5-17.5); MEAN CORPUSCULAR HGB CONC 32.1 g/dl (32.0-36.5); MEAN CORPUSCULAR VOLUME 99.5 fl (80.0-96.0); PLATELET COUNT, AUTOMATED 291 10^3/uL (150-450); RED BLOOD COUNT 3.94 10^6/uL (4.30-6.10); WHITE BLOOD COUNT 9.6 10^3/uL (4.0-10.0)
[2024-06-27 15:41] LABS: FREE T4 1.06 NG/DL (0.89-1.76)
[2024-06-27 15:43] LABS: THYROID STIMULATING HORMONE 4.742 uIU/ML (0.55-4.78)
[2024-06-27 15:47] LABS: ALBUMIN 3.1 G/DL (3.2-5.2); BILIRUBIN,TOTAL 0.4 MG/DL (0.3-1.2); CALCIUM LEVEL 10.2 MG/DL (8.3-10.6); CHOLESTEROL RISK RATIO 2.17 (<5); CREATININE FOR GFR 1.27 MG/DL (0.70-1.30); GLOMERULAR FILTRATION RATE 57.9 (>35); HDL CHOLESTEROL 77.2 MG/DL (>40); LDL CHOLESTEROL 75.8 MG/DL (<100); NON-HDL-C 90.8 MG/DL; POTASSIUM SERUM 4.9 MMOL/L (3.5-5.1); TOTAL PROTEIN 6.6 G/DL (5.7-8.2)
[2024-06-27 15:48] LABS: LITHIUM LEVEL 0.66 MMOL/L (1.0-1.20)
== END ==
LOC: M SFHCCLAY 07:31
PROVIDERS: ATTEND Nurse Practitioner Family
DX: Z12.5 Encounter for screening for malignant neoplasm of prostate (principal); D64.9 Anemia, unspecified; E78.2 Mixed hyperlipidemia; E03.9 Hypothyroidism, unspecified; F31.9 Bipolar disorder, unspecified; G25.0 Essential tremor
CPT/HCPCS: 36415; 80053; 80061; 80178; 84439; 84443; 85025; 85027; G0103

== ENCOUNTER → 2024-06-30 | Outpatient (CLI) | payer MEDICARE, BC | LOC: M CLY 15:50 | PROVIDERS: ATTEND Family Medicine | DX: R05.3 Chronic cough (principal); Z53.9 Procedure and treatment not carried out, unspecified reason ==

== ENCOUNTER → 2024-07-03 | Outpatient (CLI) | payer MEDICARE, BC | LOC: M CLY 13:28 | PROVIDERS: ATTEND Family Medicine | DX: R05.3 Chronic cough (principal); J44.9 Chronic obstructive pulmonary disease, unspecified ==

== ENCOUNTER → 2024-12-15 | Outpatient (REF) | payer MEDICARE, BC ==
[2024-12-15 13:21] LABS: BASO # 0.0 10^3/uL (0.0-0.2); BASO % 0.5 % (0.0-1.0); EOS # 0.2 10^3/uL (0.0-0.5); EOS % 2.2 % (0.0-3.0); LYMPH # 1.2 10^3/uL (1.5-5.0); LYMPH % 16.4 % (24.0-44.0); MONO # 0.6 10^3/uL (0.0-0.8); MONO % 8.1 % (2.0-8.0); NEUTROPHILS # 5.5 10^3/uL (1.5-8.5); NEUTROPHILS % 72.4 % (36.0-66.0); PLATELET COUNT, AUTOMATED 263 10^3/uL (150-450)
[2024-12-15 13:23] LABS: ALT/SGPT 23.0 U/L (7.0-40); AST/SGOT 26.0 U/L (<34); CALCIUM LEVEL 10.2 MG/DL (8.3-10.6); CARBON DIOXIDE LEVEL 32.0 MMOL/L (20-31); CHLORIDE LEVEL 102.0 MMOL/L (98-107); CREATININE FOR GFR 1.3 MG/DL (0.70-1.30); GLOMERULAR FILTRATION RATE 54.9 (>35); POTASSIUM SERUM 4.4 MMOL/L (3.5-5.1); SODIUM LEVEL 142.0 MMOL/L (136-145)
== END ==
LOC: M LABDRAWC 11:52
PROVIDERS: ATTEND Psychiatry & Neurology Neurology
DX: D64.9 Anemia, unspecified (principal); R25.1 Tremor, unspecified

== ENCOUNTER → 2025-01-09 | Outpatient (REF) | payer MEDICARE, BC ==
[2025-01-09 12:22] LABS: PLATELET COUNT, AUTOMATED 277 10^3/uL (150-450)
[2025-01-09 15:11] LABS: ALT/SGPT 24.0 U/L (7.0-40); AST/SGOT 27.0 U/L (<34); CALCIUM LEVEL 9.8 MG/DL (8.3-10.6); CARBON DIOXIDE LEVEL 31.0 MMOL/L (20-31); CHLORIDE LEVEL 104.0 MMOL/L (98-107); CREATININE FOR GFR 1.28 MG/DL (0.70-1.30); FREE T4 1.03 NG/DL (0.89-1.76); GLOMERULAR FILTRATION RATE 55.9 (>35); LITHIUM LEVEL 0.6 MMOL/L (1.0-1.20); POTASSIUM SERUM 5.1 MMOL/L (3.5-5.1); SODIUM LEVEL 142.0 MMOL/L (136-145)
== END ==
LOC: M SFHCCLAY 08:18
PROVIDERS: ATTEND Family Medicine
DX: D64.9 Anemia, unspecified (principal); E78.2 Mixed hyperlipidemia; R79.89 Other specified abnormal findings of blood chemistry; F31.9 Bipolar disorder, unspecified

== ENCOUNTER 2025-03-27 01:14 | Inpatient (IN) | payer MEDICARE, BC ==
[~2025-03-27] VITALS: Ht 162.6 cm; Wt 52.7 kg
[2025-03-27 01:45] LABS: KETONE, URINE AUTO RFX NEGATIVE (NEGATIVE); LEUKOCYTE ESTERASE UR AUTO RFX NEGATIVE (NEGATIVE); NITRITE, URINE AUTO RFX NEGATIVE (NEGATIVE); RBC, URINE AUTO RFX 2 /HPF (0-3); SQUAM EPITHELIAL CELL UR AURFX 0 /HPF (0-6); WBC, URINE AUTO RFX 0 /HPF (0-3)
[2025-03-27 01:51] LABS: BASO # 0.0 10^3/uL (0.0-0.2); BASO % 0.2 % (0.0-1.0); EOS # 0.0 10^3/uL (0.0-0.5); EOS % 0.1 % (0.0-3.0); LYMPH # 0.6 10^3/uL (1.5-5.0); LYMPH % 6.5 % (24.0-44.0); MONO # 0.7 10^3/uL (0.0-0.8); MONO % 8.0 % (2.0-8.0); NEUTROPHILS # 7.9 10^3/uL (1.5-8.5); NEUTROPHILS % 85.0 % (36.0-66.0); PLATELET COUNT, AUTOMATED 197 10^3/uL (150-450)
[2025-03-27] MEDS: NS (Normal Saline) 0.9% 1,000 ML IV ONE (02:03)
[2025-03-27] MEDS: ACETAMINOPHEN *IV* 1,000 MG in IV 1 EA IV ONE (02:03)
[2025-03-27] MEDS: IBUPROFEN 600 MG TAB PO ONE ×2 (02:03→17:40)
[2025-03-27 02:11] LABS: CPK CREATINE PHOSPHOKINASE 456 U/L (46-171)
[2025-03-27 02:12] LABS: ALT/SGPT 26 U/L (7.0-40); AST/SGOT 42 U/L (<34); CALCIUM LEVEL 9.0 MG/DL (8.3-10.6); CARBON DIOXIDE LEVEL 28 MMOL/L (20-31); CHLORIDE LEVEL 96 MMOL/L (98-107); CK-MB VALUE MASS 3.7 NG/ML (<3.6); CREATININE FOR GFR 1.27 MG/DL (0.70-1.30); GLOMERULAR FILTRATION RATE 56.4 (>35); MB/CK RELATIVE INDEX 0.81 (< OR =4); POTASSIUM SERUM 4.1 MMOL/L (3.5-5.1); SODIUM LEVEL 131 MMOL/L (136-145)
[2025-03-27] MEDS ORDERED: MAALOX 30 ML SUSP *UDC PO PRN (03:55)
[2025-03-27] MEDS ORDERED: MOM 30 ML SUSPENSION UDC PO PRN (03:55)
[2025-03-27] MEDS: cefTRIAXone SOD 2 GM in DEXTROSE 5% (D5W) ADV/MINI-BAG 50 ML IV ONE (04:03)
[2025-03-27 04:54] LABS: LITHIUM LEVEL 0.39 MMOL/L (1.0-1.20)
[2025-03-27] MEDS: AZITHROMYCIN 250 MG TABLET PO SCH (06:04)
[2025-03-27] MEDS: IPRATROPIUM 0.5 MG/ALBUTEROL 2.5 MG INH SOL UD 3 ML INH SCH (06:55)
[2025-03-27] MEDS ORDERED: CITA20TA6 PO (08:38)
[2025-03-27] MEDS ORDERED: DORZ10DR10 OU (08:38)
[2025-03-27] MEDS ORDERED: TAMS1CAP17 PO (08:38)
[2025-03-27] MEDS ORDERED: BUSP30TA PO (08:38)
[2025-03-27] MEDS ORDERED: LITH1TAB PO (08:38)
[2025-03-27] MEDS ORDERED: MULTTAB61 PO (08:38)
[2025-03-27] MEDS ORDERED: PRIM50TA6 PO (08:38)
[2025-03-27] MEDS ORDERED: XALA0.007 OU (08:38)
[2025-03-27] MEDS ORDERED: HOME MED LIST COMPLETE! XX SCH (08:40)
[2025-03-27] MEDS: ATORVASTATIN 10 MG TAB PO SCH (11:45)
[2025-03-27] MEDS: GABAPENTIN 300 MG CAP PO SCH (11:45)
[2025-03-27] MEDS: PRIMIDONE 50MG TAB PO SCH (11:45)
[2025-03-27] MEDS: LITHIUM CARBONATE **ER** 300 MG PO SCH (11:46)
[2025-03-27] MEDS: ENOXAPARIN 40 MG/0.4 ML SYRINGE (J1650 PER 10MG) SC SCH (11:46)
[2025-03-27] MEDS: DORZOLAMIDE/TIMOLOL 10 ML OPHTHALMIC SOLN OU SCH (11:46)
[2025-03-27] MEDS: NS (Normal Saline) 0.9% 1,000 ML IV SCH ×2 (11:54→21:28)
[2025-03-27] MEDS: ACETAMINOPHEN 325 MG TAB PO PRN (16:16)
[2025-03-27 18:03] VITALS: BP 108/58; TEMP 104.5; O2SAT 93
[2025-03-27 19:55] LABS: BASO # 0.0 10^3/uL (0.0-0.2); BASO % 0.2 % (0.0-1.0); EOS # 0.0 10^3/uL (0.0-0.5); EOS % 0.0 % (0.0-3.0); LYMPH # 0.5 10^3/uL (1.5-5.0); LYMPH % 4.4 % (24.0-44.0); MONO # 0.3 10^3/uL (0.0-0.8); MONO % 3.0 % (2.0-8.0); NEUTROPHILS # 9.5 10^3/uL (1.5-8.5); NEUTROPHILS % 91.9 % (36.0-66.0); PLATELET COUNT, AUTOMATED 140 10^3/uL (150-450)
[2025-03-27] MEDS: LATANOPROST 0.005% OPHTH SOLN 2.5 ML OU SCH (21:00)
[2025-03-27 21:06] VITALS: BP 86/50; TEMP 99; O2SAT 95
[2025-03-27 21:11] VITALS: TEMP 98.5
[2025-03-27] MEDS: TAMSULOSIN 0.4 MG CAP PO SCH (21:20)
[2025-03-27 22:27] VITALS: BP 97/53
[2025-03-27 23:42] VITALS: BP 89/54
[2025-03-27 23:54] VITALS: BP 106/62
[2025-03-28] MEDS: cefTRIAXone SOD 1 GM in DEXTROSE 5% (D5W) ADV/MINI-BAG 50 ML IV SCH (04:02)
[2025-03-28 05:01] VITALS: BP 120/56; TEMP 99; O2SAT 95
[2025-03-28 06:51] LABS: C REACTIVE PROTEIN QUANTITATIV 17.82 MG/DL (<1.0); CALCIUM LEVEL 7.9 MG/DL (8.3-10.6); CARBON DIOXIDE LEVEL 25.0 MMOL/L (20-31); CHLORIDE LEVEL 109.0 MMOL/L (98-107); CREATININE FOR GFR 1.09 MG/DL (0.70-1.30); GLOMERULAR FILTRATION RATE 67.8 (>35); MAGNESIUM LEVEL 1.7 MG/DL (1.8-2.4); POTASSIUM SERUM 3.8 MMOL/L (3.5-5.1); SODIUM LEVEL 142.0 MMOL/L (136-145)
[2025-03-28] MEDS: MAG SULF 1GM/100ML (MAG RUN) 1 GM in IV 1 EA IV ONE (07:43)
[2025-03-28 07:56] LABS: BASO # 0.0 10^3/uL (0.0-0.2); BASO % 0.2 % (0.0-1.0); EOS # 0.0 10^3/uL (0.0-0.5); EOS % 0.0 % (0.0-3.0); LYMPH # 0.6 10^3/uL (1.5-5.0); LYMPH % 5.1 % (24.0-44.0); MONO # 0.4 10^3/uL (0.0-0.8); MONO % 3.4 % (2.0-8.0); NEUTROPHILS # 11.0 10^3/uL (1.5-8.5); NEUTROPHILS % 90.6 % (36.0-66.0); PLATELET COUNT, AUTOMATED 168 10^3/uL (150-450)
[2025-03-28] MEDS ORDERED: ISOVUE-370 76% 100 ML VIAL As Ordered ONE (11:37)
[2025-03-28 12:31] VITALS: BP 127/63; TEMP 101.6; O2SAT 93
[2025-03-28] MEDS: IPRATROPIUM 0.5 MG/ALBUTEROL 2.5 MG INH SOL UD 3 ML INH SCH (20:33)
[2025-03-28] MEDS: POLYVINYL ALCOHOL OPHTH SOLN 15ML (LIQUITEARS) OU PRN (21:18)
[2025-03-28 21:45] VITALS: TEMP 103.3
[2025-03-28 21:55] VITALS: BP 116/71; O2SAT 95
[2025-03-28] MEDS: ACETAMINOPHEN *IV* 1,000 MG in IV 1 EA IV ONE (21:57)
[2025-03-28 23:08] VITALS: TEMP 102.9
[2025-03-28] MEDS ORDERED: MEROPENEM 2 GM in SODIUM CHLORIDE 0.9% INJ 100 ML IV SCH (23:40)
[2025-03-28] MEDS: DOXYCYCLINE HYCLATE 100 MG in DEXTROSE 5% (D5W) MINI-BAG PLU 100 ML IV SCH (23:59)
[2025-03-29 01:07] VITALS: TEMP 100.7
[2025-03-29] MEDS: MEROPENEM 2 GM in SODIUM CHLORIDE 0.9% INJ 100 ML IV SCH (01:49)
[2025-03-29 03:33] VITALS: BP 120/66; TEMP 99.7; O2SAT 93
[2025-03-29 07:02] LABS: BASO # 0.0 10^3/uL (0.0-0.2); BASO % 0.2 % (0.0-1.0); EOS # 0.0 10^3/uL (0.0-0.5); EOS % 0.2 % (0.0-3.0); LYMPH # 0.7 10^3/uL (1.5-5.0); LYMPH % 6.2 % (24.0-44.0); MONO # 0.4 10^3/uL (0.0-0.8); MONO % 3.3 % (2.0-8.0); NEUTROPHILS # 10.2 10^3/uL (1.5-8.5); NEUTROPHILS % 89.5 % (36.0-66.0); PLATELET COUNT, AUTOMATED 166 10^3/uL (150-450)
[2025-03-29 07:19] LABS: CALCIUM LEVEL 8.5 MG/DL (8.3-10.6); CARBON DIOXIDE LEVEL 27.0 MMOL/L (20-31); CHLORIDE LEVEL 107.0 MMOL/L (98-107); CREATININE FOR GFR 1.13 MG/DL (0.70-1.30); GLOMERULAR FILTRATION RATE 64.9 (>35); MAGNESIUM LEVEL 2.0 MG/DL (1.8-2.4); POTASSIUM SERUM 4.1 MMOL/L (3.5-5.1); SODIUM LEVEL 141.0 MMOL/L (136-145)
[2025-03-29 12:00] VITALS: BP 102/80; TEMP 100; O2SAT 95
[2025-03-29 20:00] VITALS: BP 135/65; TEMP 100.1; O2SAT 97
[2025-03-29] MEDS: LITHIUM CARBONATE **ER** 300 MG PO SCH (20:20)
[2025-03-30 03:32] VITALS: BP 147/71; TEMP 98; O2SAT 95
[2025-03-30 05:48] LABS: BASO # 0.0 10^3/uL (0.0-0.2); BASO % 0.2 % (0.0-1.0); EOS # 0.1 10^3/uL (0.0-0.5); EOS % 1.1 % (0.0-3.0); LYMPH # 0.7 10^3/uL (1.5-5.0); LYMPH % 8.5 % (24.0-44.0); MONO # 0.5 10^3/uL (0.0-0.8); MONO % 5.9 % (2.0-8.0); NEUTROPHILS # 6.8 10^3/uL (1.5-8.5); NEUTROPHILS % 83.3 % (36.0-66.0); PLATELET COUNT, AUTOMATED 168 10^3/uL (150-450)
[2025-03-30 06:06] LABS: CALCIUM LEVEL 8.5 MG/DL (8.3-10.6); CARBON DIOXIDE LEVEL 29.0 MMOL/L (20-31); CHLORIDE LEVEL 111.0 MMOL/L (98-107); CREATININE FOR GFR 1.11 MG/DL (0.70-1.30); GLOMERULAR FILTRATION RATE 66.3 (>35); POTASSIUM SERUM 3.9 MMOL/L (3.5-5.1); SODIUM LEVEL 146.0 MMOL/L (136-145)
[2025-03-30 12:00] VITALS: BP 114/68; TEMP 96.9; O2SAT 91
[2025-03-30 20:00] VITALS: BP 147/77; TEMP 98.7; O2SAT 99
[2025-03-30] MEDS: guaiFENesin ER TABLET 600 MG TAB PO SCH (23:40)
[2025-03-31 03:20] VITALS: BP 118/65; TEMP 98.6; O2SAT 95
[2025-03-31 06:25] LABS: BASO # 0.0 10^3/uL (0.0-0.2); BASO % 0.2 % (0.0-1.0); EOS # 0.1 10^3/uL (0.0-0.5); EOS % 1.7 % (0.0-3.0); LYMPH # 0.7 10^3/uL (1.5-5.0); LYMPH % 8.8 % (24.0-44.0); MONO # 0.7 10^3/uL (0.0-0.8); MONO % 8.5 % (2.0-8.0); NEUTROPHILS # 6.7 10^3/uL (1.5-8.5); NEUTROPHILS % 80.1 % (36.0-66.0); PLATELET COUNT, AUTOMATED 168 10^3/uL (150-450)
[2025-03-31 06:48] LABS: CALCIUM LEVEL 8.4 MG/DL (8.3-10.6); CARBON DIOXIDE LEVEL 27.0 MMOL/L (20-31); CHLORIDE LEVEL 108.0 MMOL/L (98-107); CREATININE FOR GFR 1.03 MG/DL (0.70-1.30); GLOMERULAR FILTRATION RATE 72.5 (>35); POTASSIUM SERUM 3.8 MMOL/L (3.5-5.1); SODIUM LEVEL 143.0 MMOL/L (136-145)
[2025-03-31 12:00] VITALS: BP 110/61; TEMP 98.7; O2SAT 94
[2025-03-31 20:13] VITALS: BP 130/63; TEMP 100.2; O2SAT 92
[2025-04-01 03:05] VITALS: BP 140/72; TEMP 98.2; O2SAT 89
[2025-04-01 05:56] LABS: BASO # 0.0 10^3/uL (0.0-0.2); BASO % 0.2 % (0.0-1.0); EOS # 0.2 10^3/uL (0.0-0.5); EOS % 1.7 % (0.0-3.0); LYMPH # 0.7 10^3/uL (1.5-5.0); LYMPH % 7.8 % (24.0-44.0); MONO # 0.7 10^3/uL (0.0-0.8); MONO % 7.3 % (2.0-8.0); NEUTROPHILS # 7.3 10^3/uL (1.5-8.5); NEUTROPHILS % 82.0 % (36.0-66.0); PLATELET COUNT, AUTOMATED 235 10^3/uL (150-450)
[2025-04-01 06:24] LABS: CALCIUM LEVEL 9.2 MG/DL (8.3-10.6); CARBON DIOXIDE LEVEL 28.0 MMOL/L (20-31); CHLORIDE LEVEL 105.0 MMOL/L (98-107); CREATININE FOR GFR 1.0 MG/DL (0.70-1.30); GLOMERULAR FILTRATION RATE 75.1 (>35); POTASSIUM SERUM 4.3 MMOL/L (3.5-5.1); SODIUM LEVEL 140.0 MMOL/L (136-145)
[2025-04-01 11:52] VITALS: BP 122/62; TEMP 99.3; O2SAT 94
[2025-04-01 19:36] VITALS: BP 129/63; TEMP 99.3; O2SAT 94
[2025-04-01] MEDS: cefTRIAXone SOD 1 GM in DEXTROSE 5% (D5W) ADV/MINI-BAG 50 ML IV SCH (20:32)
[2025-04-02 03:51] VITALS: BP 113/57; TEMP 99.2; O2SAT 97
[2025-04-02 06:57] LABS: BASO # 0.0 10^3/uL (0.0-0.2); BASO % 0.3 % (0.0-1.0); EOS # 0.3 10^3/uL (0.0-0.5); EOS % 2.5 % (0.0-3.0); LYMPH # 0.9 10^3/uL (1.5-5.0); LYMPH % 8.8 % (24.0-44.0); MONO # 0.9 10^3/uL (0.0-0.8); MONO % 8.8 % (2.0-8.0); NEUTROPHILS # 7.7 10^3/uL (1.5-8.5); NEUTROPHILS % 78.0 % (36.0-66.0); PLATELET COUNT, AUTOMATED 270 10^3/uL (150-450)
[2025-04-02 07:19] LABS: ALT/SGPT 115.0 U/L (7.0-40); AST/SGOT 85.0 U/L (<34); CALCIUM LEVEL 9.3 MG/DL (8.3-10.6); CARBON DIOXIDE LEVEL 27.0 MMOL/L (20-31); CHLORIDE LEVEL 106.0 MMOL/L (98-107); CREATININE FOR GFR 1.11 MG/DL (0.70-1.30); GLOMERULAR FILTRATION RATE 66.3 (>35); POTASSIUM SERUM 4.8 MMOL/L (3.5-5.1); SODIUM LEVEL 141.0 MMOL/L (136-145)
[2025-04-02 12:00] VITALS: BP 84/53; TEMP 95.7; O2SAT 94
[2025-04-02] MEDS: LR 500 ML IV ONE (12:41)
[2025-04-02 13:20] VITALS: BP 105/58
== END 2025-04-02 15:14 | DRG 871 ==
LOC: M ED 01:14 → M ED INP 03:51 → M MSPAV 17:59
PROVIDERS: ADMIT Student in an Organized Health Care Education/Training Program; ATTEND Student in an Organized Health Care Education/Training Program
DX: A41.9 Sepsis, unspecified organism (principal); J18.9 Pneumonia, unspecified organism; E03.9 Hypothyroidism, unspecified; F31.9 Bipolar disorder, unspecified; E78.5 Hyperlipidemia, unspecified; R53.1 Weakness; E86.0 Dehydration; Z79.899 Other long term (current) drug therapy; Z88.0 Allergy status to penicillin